=== PATIENT | female | born 1955 | race Caucasian/White ===

== ENCOUNTER 2018-12-12 18:33 | Emergency (ER) | payer OTHER ==
[~2018-12-12] VITALS: Ht 152.4 cm; Wt 68.9 kg
[~2018-12-12 18:33] MED LIST: KETO10TA2 PO; SINGULAIR4 MG; SYMBICORT 16010.2 GM; TAMS0.4C PO
[2018-12-12] MEDS ORDERED: ENALAPRIL MALEAT5 MG (18:59)
[2018-12-12] MEDS ORDERED: OMEPRAZOLE 40 MG (19:00)
== END 2018-12-12 20:47 | disposition home or self-care (01) ==
LOC: ER 18:33
DX: M54.5 Low back pain (principal)

== ENCOUNTER 2018-12-29 18:22 | Emergency (ER) | payer OTHER ==
[~2018-12-29] VITALS: Ht 152.4 cm; Wt 68.9 kg
[~2018-12-29 18:22] MED LIST changes: +ENALAPRIL MALEAT5 MG; +OMEPRAZOLE 40 MG
[2018-12-29] MEDS ORDERED: VASOTEC10 MG (18:48)
[2018-12-29] MEDS ORDERED: OMEPRAZOLE-BIC1 EAC1 (18:49)
== END 2018-12-29 22:23 | disposition home or self-care (01) ==
LOC: ER 18:22
DX: K29.60 Other gastritis without bleeding (principal)

== ENCOUNTER → 2020-02-03 | Emergency (ER) | payer OTHER ==
[~2020-02-03] VITALS: Ht 152.4 cm; Wt 67.1 kg
[~2020-02-03] MED LIST changes: +OMEPRAZOLE-BIC1 EAC1; +SKELAXIN800 MG PO; +VASOTEC10 MG
== END | disposition home or self-care (01) ==
LOC: ER 11:29
DX: S60.222A Contusion of left hand, initial encounter (principal); S80.02XA Contusion of left knee, initial encounter; S80.01XA Contusion of right knee, initial encounter; W18.39XA Other fall on same level, initial encounter; Y93.89 Activity, other specified; Y92.89 Other specified places as the place of occurrence of the external cause; Y99.8 Other external cause status

== ENCOUNTER 2021-11-30 23:27 | Emergency (ER) | payer OTHER ==
[~2021-11-30] VITALS: Ht 152.4 cm; Wt 68.0 kg
[2021-11-30] MEDS ORDERED: OMEPRAZOLE40 MG PO (23:52)
[2021-11-30] MEDS ORDERED: LIPITOR20 MG PO (23:52)
[2021-12-01] MEDS ORDERED: MEDROLPACK PO (01:15)
[2021-12-01] MEDS ORDERED: NORFLEX100MG PO (01:15)
[2021-12-01] MEDS ORDERED: DICLOFENAC POTA50 MG PO (01:15)
== END 2021-12-01 02:08 | disposition home or self-care (01) ==
LOC: ER 23:27
DX: M54.50 Low back pain, unspecified (principal); Z91.013 Allergy to seafood

== ENCOUNTER 2022-02-12 15:25 | Emergency (ER) | payer OTHER ==
[~2022-02-12] VITALS: Ht 152.4 cm; Wt 68.0 kg
[~2022-02-12 15:25] MED LIST changes: +DICLOFENAC POTA50 MG PO; +LIPITOR20 MG PO; +MEDROLPACK PO; +NORFLEX100MG PO; +OMEPRAZOLE40 MG PO
== END 2022-02-12 21:51 | disposition home or self-care (01) ==
LOC: ER 15:25
DX: R07.9 Chest pain, unspecified (principal); Z91.013 Allergy to seafood; J45.909 Unspecified asthma, uncomplicated; E78.00 Pure hypercholesterolemia, unspecified; I10 Essential (primary) hypertension

== ENCOUNTER 2022-05-10 14:01 | Emergency (ER) | payer OTHER ==
[~2022-05-10] VITALS: Ht 152.4 cm; Wt 68.5 kg
[2022-05-10] MEDS ORDERED: ATORVASTATIN CA20 MG PO (15:14)
[2022-05-10] MEDS ORDERED: ENALAPRIL MALEA10 MG PO (15:14)
[2022-05-10] MEDS ORDERED: VITAMIN D3125 MC1 PO (15:14)
[2022-05-10] MEDS ORDERED: DILTIAZEM ER120 M2 PO (15:14)
== END 2022-05-10 20:35 | disposition home or self-care (01) ==
LOC: ER 14:01
DX: R10.2 Pelvic and perineal pain (principal); Z91.013 Allergy to seafood; K76.0 Fatty (change of) liver, not elsewhere classified

== ENCOUNTER 2022-10-02 05:17 | Day surgery (SDC) | payer OTHER ==
[~2022-10-02] VITALS: Ht 152.4 cm; Wt 68.5 kg
[~2022-10-02 05:17] MED LIST changes: +ATORVASTATIN CA20 MG PO; +DILTIAZEM ER120 M2 PO; +ENALAPRIL MALEA10 MG PO; +VITAMIN D3125 MC1 PO
== END 2022-10-02 18:00 | disposition home or self-care (01) ==
LOC: CIR.AMB 05:17
PROVIDERS: ATTEND Obstetrics & Gynecology
DX: N83.8 Other noninflammatory disorders of ovary, fallopian tube and broad ligament (principal); N83.291 Other ovarian cyst, right side; Z91.013 Allergy to seafood; I10 Essential (primary) hypertension

== ENCOUNTER 2024-02-21 04:33 | Emergency (ER) | payer OTHER ==
[~2024-02-21] VITALS: Ht 152.4 cm; Wt 68.0 kg
[~2024-02-21 04:33] MED LIST changes: +LEVSIN/SL0.125 MG SL; +LEVSIN0.125 MG PO; +ZOLPIDEM TARTRAT5 MG PO
[2024-02-21 04:57] VITALS: BP 139/62; O2SAT 97
[2024-02-21] MEDS ORDERED: LOSARTAN POTASS50 MG PO (04:57)
[2024-02-21] MEDS ORDERED: ACETAMINOPHEN 500 MG GEL..CAP PO STA (05:57)
[2024-02-21] MEDS ORDERED: ORPHENADRINE CITRATE 30 MG/ML AMPUL IM STA (05:57)
[2024-02-21] MEDS ORDERED: KETOROLAC TROMETHAMINE 60 MG VIAL IM STA (05:57)
[2024-02-21] MEDS ORDERED: KETOROLAC TROMETHAMINE 60 MG VIAL IM ONE (06:08)
[2024-02-21] MEDS ORDERED: ORPHENADRINE CITRATE 30 MG/ML AMPUL ONE (06:08)
[2024-02-21] MEDS ORDERED: ACETAMINOPHEN 500 MG GEL..CAP PO ONE (06:09)
== END 2024-02-21 06:19 | disposition home or self-care (01) ==
LOC: ER 04:35
DX: M77.8 Other enthesopathies, not elsewhere classified (principal); Z91.018 Allergy to other foods

== ENCOUNTER → 2024-08-13 | Emergency (ER) | payer OTHER ==
[~2024-08-13] VITALS: Ht 152.4 cm; Wt 68.0 kg
[~2024-08-13] MED LIST changes: +CARTIA XT120 MG; +KETOROLAC TROMETHAMINE 30 MG VIAL IM STA; +KETOROLAC TROMETHAMINE 30 MG VIAL ONE; +LIPITOR20 MG; +LOSARTAN POTASS50 MG PO; +SINGULAIR10 MG
== END | disposition home or self-care (01) ==
LOC: ER 09:01
DX: M25.572 Pain in left ankle and joints of left foot (principal); Z91.013 Allergy to seafood